=== PATIENT | female | born 1995 | race Caucasian/White ===

== ENCOUNTER 2018-03-03 16:52 | Emergency (ER) | payer MEDICAID ==
[~2018-03-03] VITALS: Ht 165.1 cm; Wt 75.3 kg
[~2018-03-03 16:52] MED LIST: TYL325 PO
[2018-03-03 17:01] VITALS: Ht 165.1 cm; Wt 75.3 kg
[2018-03-03 19:19] VITALS: BP 124/75
== END 2018-03-03 19:19 | disposition home or self-care (01) ==
LOC: ED 16:52
DX: N83.202 Unspecified ovarian cyst, left side (principal)
CPT/HCPCS: J1885

== ENCOUNTER 2019-04-18 12:25 | Emergency (ER) | payer MEDICAID ==
[~2019-04-18] VITALS: Ht 165.1 cm; Wt 73.5 kg
[2019-04-18 12:32] VITALS: Ht 165.1 cm; Wt 73.5 kg
[2019-04-18 14:54] LABS: microscopic required? YES; urine erythrocyte 3+ (NEGATIVE)
[2019-04-18 17:31] VITALS: BP 109/69
== END 2019-04-18 17:31 | disposition home or self-care (01) ==
LOC: ED 12:25
PROVIDERS: Emergency Medicine
DX: B34.9 Viral infection, unspecified (principal); R30.0 Dysuria
CPT/HCPCS: J1100; J1885; J7030

== ENCOUNTER 2019-09-07 19:46 | Emergency (ER) | payer MEDICAID ==
[~2019-09-07] VITALS: Ht 165.1 cm; Wt 76.2 kg
[2019-09-07 19:56] VITALS: Ht 165.1 cm; Wt 76.2 kg
[2019-09-07 22:00] VITALS: BP 111/61
== END 2019-09-07 22:00 | disposition home or self-care (01) ==
LOC: ED 19:46
DX: J02.9 Acute pharyngitis, unspecified (principal)
CPT/HCPCS: J1100; J1885